=== PATIENT | male | born 1995 | race Caucasian/White ===

== ENCOUNTER 2018-01-23 11:21 | Emergency (ER) | payer OTHER, BC ==
[2018-01-23] MEDS ORDERED: LORazepam 1 MG Tab PO ONE (11:33)
[2018-01-23] MEDS ORDERED: LORazepam 1 MG Tab ONE (11:34)
--- NOTE | 2018-01-23 11:42 | EDM.PDOC ---
ED HPI GENERAL MEDICAL PROBLEM - General Time Seen by Provider: 01/23/18 11:25 Source of Information: Reports: Patient History Limitations: Reports: No Limitations - History of Present Illness INITIAL COMMENTS - FREE TEXT/NARRATIVE: Pt is a 22 year old male who is here in the emergency room. 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 Pt stared to feel flushed around 9 am today. He continued to work and he started to feel weak and tired and soon started to feel shaky and nauseous. No vomiting. Hence was brought into the emergency room. Here in the emergency room he claims he is feeling better. No fever or chills. No cough, no chest pain or chest tightness. - Related Data Allergies Allergy/AdvReac Type Severity Reaction Status Date / Time No Known Allergies Allergy Verified 01/23/18 11:51 Home Meds: Home Meds NK [No Known Home Meds] 01/23/18 [History] ED ROS GENERAL - Review of Systems Review Of Systems: See Below Constitutional: Reports: Weakness, Fatigue. Denies: Fever, Chills, Diaphoresis HEENT: Denies: Rhinitis, Throat Pain, Throat Swelling Respiratory: Denies: Shortness of Breath, Wheezing, Cough, Sputum Cardiovascular: Reports: Lightheadedness, Palpitations. Denies: Chest Pain, Syncope GI/Abdominal: Reports: Nausea. Denies: Abdominal Pain, Vomiting Musculoskeletal: Denies: Joint Pain, Joint Swelling Skin: Denies: Bruising, Pruritis, Rash Neurological: Reports: Weakness. Denies: Confusion, Dizziness, Headache, Numbness, Seizure, Syncope, Tingling ED EXAM, GENERAL - Physical Exam Exam: See Below Exam Limited By: No Limitations General Appearance: Alert, WD/WN, No Apparent Distress, Anxious Eye Exam: Bilateral Eye: EOMI, PERRL Ears: Normal External Exam, Normal Canal, Hearing Grossly Normal, Normal TMs Ear Exam: Bilateral Ear: Auricle Normal, Canal Normal, TM normal Nose: Normal Inspection, Normal Mucosa, No Blood Throat/Mouth: Normal Inspection, Normal Lips, Normal Teeth, Normal Gums, Normal Oropharynx, Normal Voice, No Airway Compromise Head: Atraumatic, Normocephalic Neck: Normal Inspection, Supple, Non-Tender, Full Range of Motion Respiratory/Chest: No Respiratory Distress, Lungs Clear, Normal Breath Sounds, No Accessory Muscle Use, Chest Non-Tender Cardiovascular: Normal Peripheral Pulses, Regular Rate, Rhythm, No Edema, No Gallop, No JVD, No Murmur, No Rub Peripheral Pulses: 2+: Radial (L), Radial (R) GI/Abdominal: Normal Bowel Sounds, Soft, Non-Tender, No Organomegaly, No Distention, No Abnormal Bruit, No Mass Extremities: Normal Inspection, Normal Range of Motion, Non-Tender, Normal Capillary Refill, No Pedal Edema Neurological: Alert, Oriented Psychiatric: Anxious Skin Exam: Warm, Intact, Normal Color Course - Vital Signs Text/Narrative:: Pt claims he has been working outdoor digging on hot prateek day. started with skin flushing and soon had lightheaded and weakness and then stated to have shakes. If does appear like he might have had early heat exhaustion and he might have felt anxious . His blood sugar was 98mg.His vitals are stable other than his Blood pressure is slightly elevated at 145/80mmhg probably from anxiety. Will give him ativan 1mg orally. Will get CBC and CMP done, make sure he does not have any electrolyte abnormalities.. Pt reassured that his CBC and CMP appear normal. He might have had mild heat exhaustion. There are no electrolyte abnormalities seen. HE might have felt anxious. Presently feeling better, his BP has improved. I have advised patient to rest for today. He should be okay to return to work tomorrow. He should drink small amount of fluids all the time when out door. also try to take rest every 1-2 hrs and stay in shade and cool off with fan to prevent heat exhaustion. - Orders/Labs/Meds Labs: Laboratory Tests 01/23/18 01/23/18 01/23/18 Range/Units 11:25 11:30 11:30 WBC 7.1 (4.0-11.0) K/uL RBC 4.95 (4.50-6.50) M/uL Hgb 15.3 (13.0-18.0) g/dL Hct 43.6 (40.0-54.0) % MCV 88 (76-96) fL MCH 30.9 (27.0-32.0) pg MCHC 35.1 H (31.0-35.0) g/dL RDW 14.1 (11.0-16.0) % Plt Count 211 (150-400) K/uL MPV 10.7 H (6.0-10.0) fL Neut % (Auto) 53.4 (45.0-70.0) % Lymph % (Auto) 32.0 (20.0-40.0) % Teller % (Auto) 9.1 (3.0-10.0) % Eos % (Auto) 4.9 (1.0-5.0) % Baso % (Auto) 0.6 H (0.0-0.5) % Neut # (Auto) 3.81 (2.00-7.50) K/uL Lymph # (Auto) 2.28 (1.50-4.00) K/uL Teller # (Auto) 0.65 (0.20-0.80) K/uL Eos # (Auto) 0.35 (0.04-0.40) K/uL Baso # (Auto) 0.04 (0.02-0.10) K/uL Sodium 139 (136-145) mmol/L Potassium 3.9 (3.5-5.1) mmol/L Chloride 102 (98-107) mmol/L Carbon Dioxide 23.5 (21.0-32.0) mmol/L Anion Gap 17.4 H (5.0-15.0) mmol/L BUN 19 (8-26) mg/dL Creatinine 1.09 (0.70-1.30) mg/dL Est Cr Clr Drug Dosing TNP Estimated GFR (MDRD) > 60 (>60) MLS/MIN BUN/Creatinine Ratio 17.4 (6-25) Glucose 94 (74-100) mg/dL POC Glucose 98 (74-110) mg/dL Calcium 9.4 (8.5-10.1) mg/dL Total Bilirubin 0.5 (0.0-1.0) mg/dL AST 23 (15-37) U/L ALT 36 (12-78) U/L Alkaline Phosphatase 75 (46-116) U/L Total Protein 7.5 (6.4-8.2) g/dL Albumin 4.1 (3.4-5.0) g/dL Globulin 3.4 (2.2-4.2) g/dL Albumin/Globulin Ratio 1.2 (0.8-2.0) Meds: Medications Discontinued Medications Generic Name Dose Route Start Last Admin Trade Name Kristian PRN Reason Stop Dose Admin Lorazepam Confirm 01/23/18 11:34 Ativan Administered 01/23/18 11:35 Dose 1 mg .ROUTE .STK-MED ONE Lorazepam 1 mg 01/23/18 11:33 Ativan PO 01/23/18 11:34 ONETIME ONE Departure - Departure Time of Disposition: 12:30 Disposition: Home, Self-Care 01 Condition: Good Clinical Impression: Heat exhaustion - Discharge Information Referrals: PCP,None [Primary Care Provider] - - Problem List & Annotations (1) Heat exhaustion SNOMED Code(s): 08230503 Code(s): T67.5XXA - HEAT EXHAUSTION, UNSPECIFIED, INITIAL ENCOUNTER Status : Acute Current Visit: Yes - Problem List Review Problem List Initiated/Reviewed/Updated: Yes - Assessment/Plan Assessment:: mild heat exhaustion Plan: Pt claims he has been working outdoor digging on hot prateek day. started with skin flushing and soon had lightheaded and weakness and then stated to have shakes. If does appear like he might have had early heat exhaustion and he might have felt anxious . His blood sugar was 98mg.His vitals are stable other than his Blood pressure is slightly elevated at 145/80mmhg probably from anxiety. Will give him ativan 1mg orally. Will get CBC and CMP done, make sure he does not have any electrolyte abnormalities.. Pt reassured that his CBC and CMP appear normal. He might have had mild heat exhaustion. There are no electrolyte abnormalities seen. HE might have felt anxious. Presently feeling better, his BP has improved. I have advised patient to rest for today. He should be okay to return to work tomorrow. He should drink small amount of fluids all the time when out door. also try to take rest every 1-2 hrs and stay in shade and cool off with fan to prevent heat exhaustion.
== END 2018-01-23 12:33 | disposition home or self-care (01) ==
LOC: LB.ED 11:21
DX: T67.5XXA Heat exhaustion, unspecified, initial encounter (principal)
CPT/HCPCS: 36415; 80053; 82962; 85025; 99284

== ENCOUNTER 2018-01-29 12:43 | Emergency (ER) | payer BC ==
--- NOTE | 2018-01-29 21:25 | ER ---
DATE OF SERVICE: 01/29/2018 HPI: A 22-year-old male here with complaints of an episode that happened at work just a short time ago where he felt flushed in his face. He then indeed was lightheaded after this and has had a lot of muscle aches since then. He states he just did not feel good. This happened while he was sitting in the work truck with air conditioner on. He has been in the truck for about 15 minutes. He states he was not working hard today. The patient had a similar episode just a few days ago and came in for evaluation. His labs were normal. The patient has not had any problems with chest pain, shortness of breathing, or coughing and no recent falls or injuries. OBJECTIVE: GENERAL APPEARANCE: The patient is awake and alert. No obvious distress. VITAL SIGNS: Reviewed. Blood pressure 140/87, pulse 72, he is afebrile, O2 sats are 99% on room air. Physical exam, Eyes, pupils equal, round, and reactive to light. EOMs are intact without strabismus, nystagmus, or ptosis. Ears, TMs are normal. Nares are patent. Oral mucous membranes are moist. Tonsils not enlarged or injected. Pharynx not inflamed. NECK: Supple. LUNGS: Clear to auscultation without rales, wheezes, or rhonchi. CARDIAC: Heart sounds distinct. S1, S2 present. Regular rate. No murmurs. ABDOMEN: Soft, nontender. Bowel sounds are present. SKIN: Warm and dry. LABORATORY DATA: Labs today include a CBC which is normal. Comprehensive metabolic panel was unremarkable. Sedimentation rate is 3. CRP is 2.5, normal. TSH is normal at 1.399. UA is also normal. A Lyme titer was also drawn with results pending. DIAGNOSIS: Vaso-vagal episode with Myalgia etiology unclear. TREATMENT PLAN: I advised the patient to continue with activity as tolerated. He should rest the remaining portion of the day and resume light duty activity tomorrow. I do want the patient to follow up with an MD in the clinic here within a few days for recheck. Hopefully, two or three days, he can get in by the end of this week and for further evaluation. We will also call the patient with a Lyme titer results when it is available. CRS/MODL /[id number] MTDD
== END 2018-01-29 14:18 | disposition home or self-care (01) ==
LOC: LB.ED 12:43
DX: R55 Syncope and collapse (principal); M79.1 Myalgia
CPT/HCPCS: 36415; 80053; 81001; 84443; 85025; 85651; 86140; 87476; 99284